=== PATIENT | male | born 1955 | race Caucasian/White ===

== ENCOUNTER 2019-05-16 16:45 | Emergency (ER) | payer BC, OTHER ==
[2019-05-16] MEDS ORDERED: NS 0.9% 1000 ML** 1,000 ML IV ONE (16:46)
[2019-05-16] MEDS ORDERED: Alteplase* 100 MG VIAL ONE (16:47)
--- NOTE | 2019-05-16 16:50 | ED ---
Neurological HPI - HPI Summary HPI Summary: Patient is a 63 y/o M presenting to the ED via EMS for a chief complaint of neurological deficit. Per EMS, patient had a headache at work around 15:00 on . After arriving home, patient was asymptomatic other than the headache until approximately 16:00 on 05/16/19, when his son noticed the patient was confused, had slurred speech, right-sided facial droop, and right-sided UE and LE weakness. EMS was called and patient continued to have these symptoms. On EMS arrival, patient could not state his name when asked. PMHx is significant for HTN for which he takes Losartan. Patient is not on blood thinners. Yvette rivera called 16:45, TPA at 17:08. - History of Current Complaint Stated Complaint: YVETTE RIVERA PER EMS Time Seen by Provider: 05/16/19 16:46 Hx Obtained From: Patient, EMS Onset/Duration: Sudden Onset, Still Present Timing: Sudden Onset Onset Severity: Moderate Current Severity: Moderate Neurological Deficit Location: RUE, RLE Pain Scale Used: 0-10 Numeric Character: Impaired Speech, Confusion Associated Signs and Symptoms: Positive: Headache, Confusion, Impaired Speech TPA Considered: Yes - Allergy/Home Medications Allergies/Adverse Reactions: Allergies Allergy/AdvReac Type Severity Reaction Status Date / Time No Known Allergies Allergy Verified 05/16/19 17:37 Home Medications: Home Medications Losartan TAB* [Cozaar TAB*] 100 mg PO DAILY 05/16/19 [History Confirmed 05/16/19 ] amLODIPine TAB* [Norvasc 5 mg TAB*] 5 mg PO DAILY 05/16/19 [History Confirmed ] buPROPion SR TAB* [Wellbutrin SR TAB*] 150 mg PO BID 05/16/19 [History Confirmed 05/16/19] PMH/Surg Hx/FS Hx/Imm Hx Previously Healthy: Yes Endocrine/Hematology History: Denies: Hx Anticoagulant Therapy Cardiovascular History: Reports: Hx Hypertension Sensory History: Denies: Hx Legally Blind, Hx Deafness Opthamlomology History: Denies: Hx Legally Blind EENT History: Denies: Hx Deafness - Surgical History Surgical History: None Surgery Procedure, Year, and Place: None Infectious Disease History: No Infectious Disease History: Denies: Traveled Outside the [place] in Last 30 Days - Family History Known Family History: Negative: Cardiac Disease - Social History Occupation: Employed Full-time Lives: With Family Alcohol Use: None Hx Substance Use: No Substance Use Type: Reports: None Hx Tobacco Use: No Smoking Status (MU): Never Smoked Tobacco Review of Systems Positive: Other - Positive right-sided facial droop Positive: Headache, Weakness - Right-sided, including right UE and LE, Slurred Speech Psychological: Other - Positive confusion All Other Systems Reviewed And Are Negative: Yes Physical Exam - Summary Physical Exam Summary: Constitutional: Well-developed, Well-nourished, Alert. (-) Distressed Skin: Warm, Dry HENT: Normocephalic; Atraumatic Eyes: Conjunctiva normal Neck: Musculoskeletal ROM normal neck. (-) JVD, (-) Stridor Cardio: Rhythm regular, rate normal, Heart sounds normal; Intact distal pulses; Radial pulses are 2+ and symmetric. (-) Murmur Pulmonary/Chest wall: Effort normal. (-) Respiratory distress, (-) Wheezes, (-) Rales Abd: Soft, (-) tenderness, (-) Distension, (-) Guarding, (-) Rebound Musculoskeletal: (-) Edema Lymph: (-) Cervical adenopathy Neuro: Alert, R facial droop R arm 0/5 strength, R Leg 0/5 strength, severe aphasia. NIHSS 20 Psych: deferred l Triage Information Reviewed: Yes Vital Signs Reviewed: Yes Procedures - Sedation Patient Received Moderate/Deep Sedation with Procedure: No Diagnostics - Laboratory Result Diagrams: 05/16/19 17:21 Lab Statement: Any lab studies that have been ordered have been reviewed, and results considered in the medical decision making process. - CT Head CTA Summary of CT Findings: Head CTA IMPRESSION: #. Calcific plaque appears to result in high-grade stenosis at the bilateral intracranial internal carotid arteries with magnitude of calcific plaque limiting assessment. #. 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 In retrospect there is LEFT middle cerebral artery hyperdense sign on noncontrast CT. Reviewed by Dr. Hayes. Brain CT CT Interpretation Completed By: Radiologist Summary of CT Findings: Brain CT IMPRESSION: #. Negative for intracranial hemorrhage or gross CT stigmata of ischemic stroke. #. Results discussed with Dr. Hayes 05/16/2019 4:[address] PM [address] Reviewed by Dr. Hayes. - EKG 17:08 Cardiac Rate: Tachycardia - 100 BPM EKG Rhythm: Sinus Tachycardia ST Segment: Normal Ectopy: None Summary of EKG Findings: An EKG at 17:08 reveals sinus tachycardia with 100 BPM , T wave flattening in lead III, nml axis, nml intervals. No STEMI. No acute changes. ED physician has reviewed and interpreted this EKG. NIH Scale - NIH Scale Level of Consciousness: Responds to Minor Stimulation Ask Patient the Month and His/Her Age: Neither Correct/Aphasic Ask Pt to Open/Close Eyes and Decorating Consultant/Release Non-Paretic Hand: One Correctly Best Gaze (Only Horizontal Eye Movement): Partial Gaze Palsy Visual Field Testing: Complete Hemianopia Facial Paresis-Pt to Smile & Close Eyes or Grimace Symmetry: Partial Paralysis Motor Function - Right Arm: No Effort Against Murphys Motor Function - Left Arm: No Drift-Holds 10 Seconds Motor Function - Right Leg: No Movement Motor Function - Left Leg: No Drift-Holds 10 Seconds Limb Ataxia-Must be out of Proportion to Weakness Present: Absent Sensory (Use Pinprick to Test Arms/Legs/Trunk/Face): Normal Best Language (Describe Picture, Name Items): Severe Aphasia Dysarthria (Read Several Words): Slurs Some Words Extinction and Inattention: Inattention Total Score: 20 NIH Stroke Scale Comment: NIH STROKE SCALE CALCULATED AT 17:00. Re-Evaluation - Re-Evaluation First Eval Re-Evaluation Time: 17:00 Change: Unchanged Comment: At 17:00, the risks and benefits of TPA administration were discussed with the patient and the patient's family. They understand the risks and benefits and agree to have TPA administered. Course/Dx - Course Course Of Treatment: 63 y/o history of hypertension presents with acute right- sided facial droop, aphasia, right-sided weakness. - NIHSS scale 20, non con head CT neg, CTA w M1 occlusion, patient is a TPA candidate given M1 occlusion on CT and LKN 16:00, risks and benefits were discussed with patient and TPA was administered. Case discussed with on-call neurology, Dr. Leone in conjunction with [facility]. - Patient to be transferred to [facility] for possible thrombectomy. - Diagnoses Provider Diagnoses: Occlusion of middle cerebral artery During the Visit The Following Alert/Code Occurred: Code Rivera - CODE RIVERA CALLED AT 16:32 IN THE ED ETA 15 MINUTES. [facility]. DR. HAYES TO ASSESS THE PATIENT AT 16:44. LAST KNOWN WELL TIME WAS 16:00 ON 05/16/19. DR. TALON LEONE AT BEDSIDE TO ASSESS THE PATIENT AT 16:44. PATIENT TAKEN TO CT SUITE AT 16:45. DR. LEONE RECOMMENDS BRAIN CT AND TPA BE ADMINISTERED AT 16:46. AT 16:48, DR. TALON LEONE RECOMMENDS TRANSFER TO ANOTHER FACILITY. RADIOLOGY GIVES A PRELIMINARY FINDING OF NEGATIVE FINDINGS FOR THE BRAIN CT AT 04:59. DR. LEONE IS PRESENT TO REASSESS THE PATIENT AND SPEAK TO THE FAMILY AT 17:00. RADIOLOGY GIVES A PRELIMINARY FINDING OF MCA OCCLUSION FOR THE HEAD CTA AT 17:05. TPA WAS CONSIDERED. PATIENT IS NOT ON BLOOD THINNERS. PATIENT WAS TPA MIXED AND GIVEN AT 17:08. - Physician Notifications Discussed Care Of Patient With: Talon Leone - DR. LEONE RECOMMENDS BRAIN CT AND TPA BE ADMINISTERED AT 16:46. AT 16:48, DR. TALON LEONE RECOMMENDS TRANSFER TO ANOTHER FACILITY. At 17:30, Dr. Deven Disla at [facility] reviewed the patients case and agrees to accept the patient as a transfer to their facility for a diagnosis of middle cerebral artery occlusion. Patient requires transfer to a high level of care as patient is not appropriate for [facility] and has a possible thrombectomy. Time Discussed With Above Provider: 16:46 Instructed by Provider To: Transfer Reason For Transfer: Specialty or service not available at [facility] Patient not appropriate for [facility] Specialist unable to manage this patient. - Critical Care Time Critical Care Time: 30-74 min - Upon my evaluation, this patient had a high probability of imminent or life-threatening deterioration due to acute stroke which required my direct attention, intervention, and personal management. I have personally provided 35 minutes of critical care time exclusive of time spent on separately billable procedures. Time includes review of laboratory data , radiology results, discussion with consultants, and monitoring for potential decompensation. Interventions were performed as documented above. Discharge ED - Sign-Out/Discharge Documenting (check all that apply): Patient Departure - Transfer - Discharge Plan Condition: Stable Disposition: TRANS [facility] Referrals: Giuseppe De La Cruz MD [Primary Care Provider] - - Billing Disposition and Condition Condition: STABLE Disposition: Trans Higher Lvl of Care Fac - Attestation Statements Document Initiated by Joyibe: Yes Documenting Scribe: Judy Bella Provider For Whom Simone is Documenting (Include Credential): Adrienne Hayes MD Scribe Attestation: Judy Aranda, scribed for Adrienne Hayes MD on 05/16/19 at 1737. Scribe Documentation Reviewed: Yes Provider Attestation: The documentation as recorded by the [facility] accurately reflects the service I personally performed and the decisions made by , Adrienne Hayes MD Status of Scribe Document: Viewed
--- OUTSIDE RECORDS SUMMARY | 2019-05-16 16:55 | XMS REPORT | Summary of Care ---
:1955 Author Organization [facility] Address [address] [place] Rivera [address] Care Team Providers Name Role Phone Giuseppe De La Cruz Primary Care Provider Reason for Visit Reason Comments Physical Patient here for routine physical and medication. Encounter Details Date Type Department Care Team Description 04/28/2019 Office Visit [facility] Giuseppe De La Cruz, Routine general Medicine MD medical examination at [facility] [address] [place] [address] [place] [address] (Primary Dx) [phone] Allergies No Known Allergiesdocumented as of this encounter (statuses as of 04/28/2019) Medications Medication Sig Dispensed Refills Start Date End Date Status Aspirin 81 MG Take 81 mg 0 Active Oral Tab by mouth. amLodipine Take 1 Tab 90 Tab 3 04/28/2019 04/27/2020 Active (NORVASC) 5 MG by mouth Oral Tab DAILY. Losartan Take 1 Tab 90 Tab 3 04/28/2019 Active Potassium 100 MG by mouth Oral Tab DAILY. buPROPion Take 1 Tab 60 Tab 5 04/28/2019 04/27/2020 Active (WELLBUTRIN SR) by mouth 150 MG Oral DIRECTED. TABLET SR 12 HR One in am 7 days prior to quit date then 1 twice daily 3 month Losartan Take 1 Tab 90 Tab 3 03/09/2019 04/28/2019 Discontinued Potassium 100 MG by mouth (Reorder) Oral Tab DAILY. amLodipine Take 1 Tab 30 Tab 0 04/07/2019 04/28/2019 Discontinued (NORVASC) 5 MG by mouth (Reorder) Oral Tab DAILY. documented as of this encounter (statuses as of 04/28/2019) Active Problems Problem Noted Date Essential hypertension 10/29/2016 Tobacco use disorder Dyslipidemia documented as of this encounter (statuses as of 04/28/2019) Resolved Problems Problem Noted Date Resolved Date Hypertension 10/29/2016 documented as of this encounter (statuses as of 04/28/2019) Immunizations Name Administration Dates Next Due Influenza (IM) Preservative Free 01/16/2011 PNEUMOCOCCAL POLYSACCHARIDE VACCINE 03/04/2018 TDAP Vaccine 02/04/2010 documented as of this encounter Social History Tobacco Use Types Packs/Day Years Used Date Current Every Day Smoker Cigarettes 0.75 25 Smokeless Tobacco: Never Used Comments: quit for over 1 year in the distant past Alcohol Use Drinks/Week oz/Week Comments Yes 4 Cans of beer 4.0 Sex Assigned at Date Recorded Not on file Job Start Date Occupation Industry Not on file Not on file Not on file Travel History Travel Start Travel End No recent travel history available. documented as of this encounter Last Filed Vital Signs Vital Sign Reading Time Taken Comments Blood Pressure 136/72 04/28/2019 10:10 AM EST Pulse 84 04/28/2019 9:41 AM EST Temperature - - Respiratory Rate - - Oxygen Saturation 98% 04/28/2019 9:41 AM EST Inhaled Oxygen Concentration - - Weight 87.5 kg (193 lb) 04/28/2019 9:41 AM EST Height 170.2 cm (5' 7") 04/28/2019 9:41 AM EST Body Mass Index 30.23 04/28/2019 9:41 AM EST documented in this encounter Patient Instructions Patient InstructionsGiuseppe De La Cruz MD - 04/28/2019 9:40 AM ESTBlood test today Refill on medication Bupropion (wellbutrin) is a pill that can help you quit smoking. It works by blocking the pleasurable sensation of nicotine. It can cause dry mouth, headache and insomnia in 5-10% who use it. Please read the material I have given you and consider using bupriorpion around the time you quit smoking This was sent in take for one week prior to smoke quit date and use for 3 months documented in this encounter Progress Notes Giuseppe De La Cruz MD - 04/28/2019 9:40 AM EST SUBJECTIVE: Jay Croft is a 63-y.o. male for presenting for his annual checkup. Patient Active Problem List Diagnosis Tobacco use disorder Dyslipidemia Essential hypertension Current Outpatient Medications Medication Sig amLodipine (NORVASC) 5 MG Oral Tab Take 1 Tab by mouth DAILY. Aspirin 81 MG Oral Tab Take 81 mg by mouth. buPROPion (WELLBUTRIN SR) 150 MG Oral TABLET SR 12 HR Take 1 Tab by mouth DIRECTED. One austen 7 days prior to quit date then 1 twice daily 3 month Losartan Potassium 100 MG Oral Tab Take 1 Tab by mouth DAILY. No current facility-administered medications for this visit. Allergies: Patient has no known allergies. ROS: Feeling well. No dyspnea or chest pain on exertion. No abdominal pain, change in bowel habits,black or bloody stools. No urinary tract or prostatic symptoms. No neurological complaints. He still smokes he has cut down he wants to quit no quit date set yet OBJECTIVE: The patient appears well, alert, oriented x 3, in no distress. BP 136/72 | Pulse 84 | Ht 5' 7" (1.702 m) | Wt 193 lb (87.5 kg) | SpO2 98% | BMI 30.23 kg/m ENT normal. Neck supple. No adenopathy or thyromegaly. PIA. Lungs are clear, good air entry, no wheezes, rhonchi or rales. S1 and S2 normal, no murmurs, regular rate and rhythm. Abdomen is soft without tenderness, guarding, mass or organomegaly. exam: no penile lesions or discharge, no testicular masses or tenderness, no hernias. Rectal and prostate exam: deferred, not clinically indicated. Extremities show no edema, normal peripheral pulses. Neurological is normal without focal findings. I note only benign skin findings. No unusual rashes or suspicious skin lesions noted. Nails appear normal. ICD-9-CM ICD-10-CM 1. Routine general medical examination at a health care facility V70.0 Z00.00 COMPREHENSIVE METABOLIC PANEL LIPID PROFILE PSA, TOTAL (FOLLOW-UP DIAGNOSTIC) 2. Tobacco use I spent 12 minutes in direct face to face counseling with the patient regarding smoking cessation. A plan was developed with the patient to start buproprion and cut down cigarette use over the next 2-4 weeks. A usp goal to set a quit date was discussed with patient. Pharmacologic and behavioral strategies for tobacco cessation were dicussed at length. (87302). Patient Instructions Blood test today Refill on medication Bupropion (wellbutrin) is a pill that can help you quit smoking. It works by blocking the pleasurable sensation of nicotine. It can cause dry mouth, headache and insomnia in 5-10% who use it. Please read the material I have given you and consider using bupriorpion around the time you quit smoking This was sent in take for one week prior to smoke quit date and use for 3 months documented in this encounter Plan of Treatment Name Type Priority Associated Diagnoses Date/Time COMPREHENSIVE METABOLIC Lab Routine Routine general medical 04/28/2019 10: 15 AM PANEL examination at a [facility] facility LIPID PROFILE Lab Routine Routine general medical 04/28/2019 10:15 AM examination at a [facility] PSA, TOTAL (FOLLOW-UP Lab Routine Routine general medical 04/28/2019 10:15 AM DIAGNOSTIC) examination at a [facility] Health Maintenance Due Date Last Done Comments ZOSTER IMMUNIZATION SERIES 12/15/2007 (1 of 2) DIABETES SCREENING 04/26/2019 04/26/2018, 03/04/2018, 10/29/2016 LIPID DISORDER SCREENING 04/26/2019 04/26/2018, 03/04/2018, 10/29/2016, Additional history exists DTaP/Tdap/Td Vaccines (2 - 02/05/2020 02/04/2010 Tdap) DEPRESSION SCREENING 04/28/2020 04/28/2019 Colonoscopy 01/06/2022 01/06/2017 PNEUMOCOCCAL 0-64 YRS Completed 03/04/2018 HEPATITIS A IMMUNIZATION Aged Out No longer eligible SERIES based on patient's age to complete this topic HPV IMMUNIZATION SERIES Aged Out No longer eligible based on patient's age to complete this topic MENINGOCOCCAL VACCINE IMM Aged Out No longer eligible based on patient's age to complete this topic documented as of this encounter Goals Goal Patient Goal Associated Recent Patient-Stated? Author Type Problems Progress Blood Pressure Blood Pressure 136/72 No Dunn, < 140/90 (04/28/2019 Giuseppe Simpson, 10:10 AM EST) Note: This is an individualized treatment (blood pressure) goal for Jay Croft: Displayed above (on the left) is your goal for blood pressure control. Your most recent blood pressure is also shown above, on the right. You should try to achieve blood pressures that are lower than your goal listed above (on the left). Weight loss vs. 18 mo Lifestyle 0 (04/28/2019 9:41 AM No Giuseppe De La Cruz MD max (lbs) >= 10 EST) Note: This is an individualized lifestyle goal for Jay Croft: Your body mass index (BMI) is more than 30. You should lose weight. A reasonable starting goal is to lose 10 pounds. Displayed above is how many pounds you have lost thus far towards your 10 pound weight loss goal. Take all prescribed medications as Self-management No Giuseppe De La Cruz MD directed Note: This is an individualized self-management goal for Jay Croft: Please take all prescribed medications as directed. 1. Do not skip doses. If you cannot afford your medications, talk with your doctor. 2. Use a pill reminder system such as a pill box if needed. Your pharmacist can help you with this. 3. Contact your Pharmacy 5 days before your medication runs out. If you cannot take your medications for any reasons, talk with your doctor. 4. Please bring all of your medication bottles and inhalers (or a list of all your medications/inhalers) with you to every visit. Potential barriers to meeting all of your care plan goals will continue to be addressed on an ongoing basis. documented as of this encounter Results Not on filedocumented in this encounter Visit Diagnoses Diagnosis Routine general medical examination at a health care facility documented in this encounter Insurance Payer Benefit Plan / Subscriber ID Effective Dates Phone Address Type Group MEHUL HERRERA xxxxxxxxxxxx 2014-Present Mehul BRANHAM PPO Guarantor Name Account Type Relation to Date of Phone Billing Patient Address Jay Croft Personal/Family 1955 [address] (Home) [place], [place] [phone] [id number] (Work) documented as of this encounter
[2019-05-16] MEDS ORDERED: Iodixanol 320 (CONTRAST) 100 ML SDV IV ONE (16:56)
[2019-05-16] MEDS ORDERED: ALTEPLASE IV ONE (17:05)
[2019-05-16] MEDS ORDERED: Alteplase* 100 MG VIAL IV ONE (17:07)
[2019-05-16 17:24] VITALS: BP 147/91
[2019-05-16 17:27] LABS: ABS Basophils 0.1 10^3/ul (0-0.2); ABS Eosinophils 0.2 10^3/ul (0-0.6); ABS Lymphocytes 1.1 10^3/ul (1.0-4.8); ABS Monocytes 0.7 10^3/ul (0-0.8); ABS Neutrophils 3.9 10^3/ul (1.5-7.7); Eosinophil % 3.1 %; Hematocrit 44 % (42-52); Hemoglobin 15.4 g/dL (14.0-18.0); Lymphocyte % 17.9 %; Mean Corpuscular HGB Conc 35 g/dL (31-36); Mean Corpuscular Hemoglobin 32 pg (27-31); Mean Corpuscular Volume 91 fL (80-94); Mean Platelet Volume 6.2 fL (7.4-10.4); Platelet Count 297 10^3/uL (150-450); Red Blood Count 4.87 10^6 /uL (4.18-5.48); Red Cell Distribution Width 15 % (10-15); White Blood Count 5.9 10^3/uL (3.5-10.8)
[2019-05-16 17:35] LABS: Activated Partial Thrombo Time 33.3 seconds (26.0-38.0); INR 0.98 (0.82-1.09)
[2019-05-16 17:48] LABS: Albumin 4.2 g/dL (3.2-5.2); Albumin/Globulin Ratio 1.4 (1-3); Calcium 9.2 mg/dL (8.6-10.3); EGFR African American 84.1 (>60); EGFR Non-African American 69.5 (>60); Globulin 3.1 g/dL (2-4); HDL Cholesterol 26.3 mg/dL; Total Bilirubin 0.3 mg/dL (0.2-1.0); Total Protein 7.3 g/dL (6.4-8.9)
--- NOTE | 2019-05-16 18:08 | CONS ---
CONTINUATION ADDENDUM NOW INCLUDED ON THIS REPORT NEUROLOGY CONSULTATION: DATE OF CONSULT: 05/16/19 REFERRING PROVIDER/EMERGENCY PHYSICIAN: Dr. Hayes. LOCATION: He is in the emergency room. CHIEF COMPLAINT: Right-sided weakness. HISTORY OF PRESENT ILLNESS: Jay Corft is a 63-year-old right-handed man who came home from work today with a cough. He had a cough for couple of days according to his . CONTINUATION ADDENDUM: He was sitting with his family at 1600 and suddenly stopped speaking. He developed right facial weakness. An ambulance was called immediately. I confirmed with his girlfriend that he was well right up until 1600 hours. In the ambulance, he was not able to raise his right arm or leg, and had a right facial weakness, and was not able to produce words. In the emergency room when first evaluated in the tam, he had an obvious right hemiparesis and was very aphasic. He had a left gaze preference. He was stopped at CT scanner and he had a CT scan of the brain, which I reviewed the images personally, which looks normal. There may be a dense left middle cerebral artery sign. He then had a CT angiogram of the brain, which reveals a cutoff of the left M1 middle cerebral artery. He has a history of hypertension and is on amlodipine and I think I believe lisinopril. He smokes. He drinks 2 to 3 beers per evening. There is no history of stroke. He is not on any blood thinners. There is no history of bleeding disorders. There is no history of gastrointestinal bleeding, recent trauma, or recent surgeries. REVIEW OF SYSTEMS: The patient is unproductive. PHYSICAL EXAMINATION: His blood pressure is running about 140/90, heart rate is running 80 to 90 in sinus on the monitor, respiratory rate is 14. Oxygen saturation is excess of 95% on room air. Neurological exam pupils are equal at about 3 mm and react to light. He has a left gaze preference but later in the evaluation, he is able to fully bring his eyes to the right. He had a right homonymous hemianopia. He had a central pattern right facial weakness. He responded to nasal tickle on the right side briskly and more so than on the left side. Speech was not dysarthric and he was only able to produce single words. On motor exam, he could move the right arm a little bit, but could not raise it off the bed. He was not able to move the right leg at all. He had normal volitional strength in the left arm and left leg. When asked to move his right side he would often move his left indicating some neglect. There is no dysmetria in the left upper extremity. He was a little bit sleepy initially. He was able to follow most but not all commands. He could produce single word answers some of the time but not routinely. DIAGNOSTIC STUDIES/LAB DATA: There were no laboratory studies to review at this point in time other than the imaging. 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 On the CTA, the radiologist does state that in retrospect there is a left middle cerebral artery hyperdense sign. IMPRESSION: Left middle cerebral artery occlusion. The risks and benefits of intravenous tPA were explained to Jay and to his girlfriend, who is listed as his next of kin. I explained that there is an improved outcome for patients who receive IV tPA in terms of stroke recovery, but there is a risk of bleeding which is about 60% and can be fatal. Jay agreed to receive tPA. TPA has since been bolused and is infusing. I have discussed this case with Dr. Disla of the stroke service at the [facility] and he has kindly agreed to accept Jay in transfer. Currently, the [employer] helicopter is on its way. I will continue to keep an eye on him here in the emergency room until he is transferred out. [id number]/CPS #: [id number] A- [id number]/[id number] #: [id number] [facility]OSPITALMichelle
[2019-05-16 18:20] LABS: Potassium 4.2 mmol/L (3.5-5.0)
--- NOTE | 2019-05-16 18:50 | CONS ---
NEUROLOGY CONSULTATION: ADDENDUM: DATE OF CONSULT: 05/16/19 EMERGENCY PHYSICIAN: Dr. Hayes He was sitting with his family at 1600 and suddenly stopped speaking. He developed right facial weakness. An ambulance was called immediately. I confirmed with his girlfriend that he was well right up until 1600 hours. In the ambulance, he was not able to raise his right arm or leg and had a right facial weakness and was not able to produce words. In the emergency room when first evaluated in the tam, he had an obvious right hemiparesis and was very aphasic. He had a left gaze preference. He was stopped at CT scanner and he had a CT scan of the brain, which I reviewed the images personally, which looks normal. There may be a dense left middle cerebral artery sign. He then had a CT angiogram of the brain, which reveals a cutoff of the left M1 middle cerebral artery. He has a history of hypertension and is on amlodipine and I think I believe lisinopril. He smokes. He drinks 2 to 3 beers per evening. There is no history of stroke. He is not on any blood thinners. There is no history of bleeding disorders. There is no history of gastrointestinal bleeding, recent trauma, or recent surgeries. REVIEW OF SYSTEMS: The patient is unproductive. PHYSICAL EXAMINATION: His blood pressure is running about 140/90, heart rate is running 80 to 90 in sinus on the monitor, respiratory rate is 14. Oxygen saturation is excess of 95% on room air. Neurological exam pupils are equal at about 3 mm and react to light. He has a left gaze preference but later in the evaluation, he is able to fully bring his eyes to the right. He had a right homonymous hemianopia. He had a central pattern right facial weakness. He responded to nasal tickle on the right side briskly and more so than on the left side. Speech was not dysarthric and he was only able to produce single words. On motor exam, he could move the right arm a little bit, but could not raise it off the bed. He was not able to move the right leg at all. He had normal volitional strength in the left arm and left leg. When asked to move his right side he would often move his left indicating some neglect. There is no dysmetria in the left upper extremity. He was a little bit sleepy initially. He was able to follow most but not all commands. He could produce single word answers some of the time but not routinely. DIAGNOSTIC STUDIES/LAB DATA: There were no laboratory studies to review at this point in time other than the imaging. 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 On the CTA, the radiologist does state that in retrospect there is a left middle cerebral artery hyperdense sign. IMPRESSION: Left middle cerebral artery occlusion. The risks and benefits of intravenous tPA were explained to Jay and to his girlfriend, who is listed as his next of kin. I explained that there is an improved outcome for patients who receive IV tPA in terms of stroke recovery, but there is a risk of bleeding which is about 60% and can be fatal. Jay agreed to receive tPA. TPA has since been bolused and is infusing. I have discussed this case with Dr. Disla of the stroke service gat the [facility] and he has kindly agreed to accept Jay in transfer. Currently, the [employer] [facility] helicopter is on its way. I will continue to keep an eye on him here in the emergency room until he is transferred out. [id number]/[facility] #: [id number] DANA
== END 2019-05-16 18:47 | disposition short-term general hospital (02) ==
LOC: ED 16:45
DX: I66.3 Occlusion and stenosis of cerebellar arteries (principal); I10 Essential (primary) hypertension; Z79.899 Other long term (current) drug therapy
CPT/HCPCS: 36415; 70450; 70496; 70498; 71045; 80053; 80061; 83605; 84484; 85025; 85610; 85730; 93005; 96365; 99285; J2997; Q9967

== ENCOUNTER 2021-05-03 07:40 | Inpatient (IN) ==
[2021-05-03] MEDS ORDERED: Lactated Ringers 1000 ml BAG 1,000 ML IV ONE (07:49)
[2021-05-03 08:18] LABS: ABS Lymphocytes 1.8 10^3/ul (1.0-4.8); ABS Monocytes 0.8 10^3/ul (0-0.8); ABS Neutrophils 8.3 10^3/ul (1.5-7.7); Eosinophil % 0.3 %; Hematocrit 49 % (42-52); Hemoglobin 15.6 g/dL (14.0-18.0); Lymphocyte % 16.4 %; Mean Corpuscular HGB Conc 32 g/dL (31-36); Mean Corpuscular Hemoglobin 30 pg (27-31); Mean Corpuscular Volume 93 fL (80-94); Platelet Count 379 10^3/uL (150-450); Red Blood Count 5.22 10^6 /uL (4.18-5.48); Red Cell Distribution Width 16 % (10-15); Venous Bicarbonate HCO3 21.8 mmol/L (24-28); White Blood Count 11.1 10^3/uL (3.5-10.8)
[2021-05-03 08:35] LABS: Albumin 4.5 g/dL (3.2-5.2); Albumin/Globulin Ratio 1.2 (1-3); C Reactive Protein 11.27 mg/L (<8.01); Calcium 10.5 mg/dL (8.6-10.3); Globulin 3.8 g/dL (2-4); Total Bilirubin 0.4 mg/dL (0.2-1.0); Total Protein 8.3 g/dL (6.4-8.9); eGFR CKD-EPI 36.2 (>60)
[2021-05-03 08:38] LABS: Potassium 5.1 mmol/L (3.5-5.0)
[2021-05-03] MEDS ORDERED: NORMOSOL-R pH 7.4 1000 mL BAG 1,000 ML IV ONE (09:10)
[2021-05-03] MEDS ORDERED: Dextrose 50% Syringe 50 ml 25 GM/50 ML SYRINGE IV PUSH PRN ×2 (09:10→22:46)
[2021-05-03] MEDS: Insulin Infusion 100unit/100mL 100 UNIT/100 ML BAG IV SCH ×2 (10:04→19:53)
[2021-05-03] MEDS: NORMOSOL-R pH 7.4 1000 mL BAG 1,000 ML IV SCH ×2 (11:11→19:29)
[2021-05-03 13:05] LABS: Calcium 9.4 mg/dL (8.6-10.3); Potassium 3.8 mmol/L (3.5-5.0)
[2021-05-03 14:34] LABS: Glucose Confirmatory 442 mg/dL (70-100)
[2021-05-03 14:42] LABS: Urine Appearance Clear; Urine Bilirubin Negative (Negative); Urine Blood Negative (Negative); Urine Color Straw; Urine Glucose 3+(>=500 mg/dL) (Negative); Urine Ketones 1+ (Negative); Urine Nitrite Negative (Negative); Urine Protein Negative (Negative); Urine Specific Gravity 1.031 (1.002-1.030); Urine Urobilinogen Negative (Negative)
[2021-05-03] MEDS: Polyethylene Glycol 3350 17 GM PACKET PO SCH (14:52)
[2021-05-03 17:31] LABS: Calcium 9.1 mg/dL (8.6-10.3); Potassium 3.7 mmol/L (3.5-5.0); eGFR CKD-EPI 53.7 (>60)
[2021-05-03] MEDS ORDERED: KCL 20 MEQ/100 ML IVPREMIX 20 MEQ/100 ML BAG IV ONE (17:45)
[2021-05-03 18:44] LABS: Calcium 9.2 mg/dL (8.6-10.3); Potassium 3.6 mmol/L (3.5-5.0); eGFR CKD-EPI 55.5 (>60)
[2021-05-03 22:37] LABS: Calcium 8.9 mg/dL (8.6-10.3); Potassium 3.5 mmol/L (3.5-5.0); eGFR CKD-EPI 61.7 (>60)
[2021-05-03] MEDS ORDERED: D5W 1/2 NS 1000 ml BAG 1,000 ML IV SCH (23:00)
[2021-05-03] MEDS ORDERED: Insulin GLARGINE 100 un/ml 10 ml VIAL SUBCUT SCH (23:00)
[2021-05-04] MEDS ORDERED: D5W 1/2 NS 1000 ml BAG 1,000 ML IV SCH (01:12)
[2021-05-04] MEDS ORDERED: Lactated Ringers 1000 ml BAG 1,000 ML IV SCH (03:00)
[2021-05-04 04:42] LABS: ABS Eosinophils 0.2 10^3/ul (0-0.6); ABS Lymphocytes 2.7 10^3/ul (1.0-4.8); ABS Monocytes 0.7 10^3/ul (0-0.8); ABS Neutrophils 5.9 10^3/ul (1.5-7.7); Eosinophil % 1.6 %; Hematocrit 33 % (42-52); Hemoglobin 11.2 g/dL (14.0-18.0); Lymphocyte % 28.5 %; Mean Corpuscular HGB Conc 34 g/dL (31-36); Mean Corpuscular Hemoglobin 30 pg (27-31); Mean Corpuscular Volume 90 fL (80-94); Mean Platelet Volume 8.4 fL (7.4-10.4); Platelet Count 239 10^3/uL (150-450); Red Blood Count 3.69 10^6 /uL (4.18-5.48); Red Cell Distribution Width 15 % (10-15); White Blood Count 9.6 10^3/uL (3.5-10.8)
[2021-05-04 04:52] LABS: INR 1.57 (0.86-1.15)
[2021-05-04 04:57] LABS: Albumin/Globulin Ratio 1.3 (1-3); Calcium 8.5 mg/dL (8.6-10.3); Globulin 2.4 g/dL (2-4); Phosphorus 2.7 mg/dL (2.5-5.0); Potassium 3.5 mmol/L (3.5-5.0); Total Bilirubin 0.4 mg/dL (0.2-1.0); Total Protein 5.4 g/dL (6.4-8.9); eGFR CKD-EPI 70.8 (>60)
[2021-05-04] MEDS ORDERED: Potassium Chlor 20 meq TAB.ER PO ONE (05:16)
[2021-05-04] MEDS: Polyethylene Glycol 3350 17 GM PACKET PO SCH (07:38)
[2021-05-04] MEDS ORDERED: Insulin GLARGINE 100 un/ml 10 ml VIAL ONE (12:17)
[2021-05-04] MEDS: Insulin GLARGINE 100 un/ml 10 ml VIAL SUBCUT SCH ×2 (12:27→21:33)
[2021-05-04] MEDS ORDERED: Insulin GLARGINE 100 un/ml 10 ml VIAL SUBCUT SCH (13:00)
[2021-05-04] MEDS: Magnesium Hydroxide LIQ 30 ML UDC PO PRN ×2 (15:03→21:28)
[2021-05-05 06:25] LABS: Calcium 8.6 mg/dL (8.6-10.3); Phosphorus 3.5 mg/dL (2.5-5.0); Potassium 3.6 mmol/L (3.5-5.0); eGFR CKD-EPI 83.6 (>60)
[2021-05-05] MEDS ORDERED: Glycerin ADULT 2.4 gm SUPP PR ONE (09:00)
[2021-05-05] MEDS: Polyethylene Glycol 3350 17 GM PACKET PO SCH (09:26)
[2021-05-05] MEDS: Insulin GLARGINE 100 un/ml 10 ml VIAL SUBCUT SCH ×2 (09:27→21:03)
[2021-05-06 07:18] LABS: ABS Eosinophils 0.1 10^3/ul (0-0.6); ABS Lymphocytes 1.3 10^3/ul (1.0-4.8); ABS Monocytes 0.4 10^3/ul (0-0.8); ABS Neutrophils 4.3 10^3/ul (1.5-7.7); Eosinophil % 2.3 %; Hematocrit 34 % (42-52); Hemoglobin 11.2 g/dL (14.0-18.0); Lymphocyte % 21.1 %; Mean Corpuscular HGB Conc 33 g/dL (31-36); Mean Corpuscular Hemoglobin 30 pg (27-31); Mean Corpuscular Volume 90 fL (80-94); Mean Platelet Volume 8.5 fL (7.4-10.4); Platelet Count 214 10^3/uL (150-450); Red Blood Count 3.75 10^6 /uL (4.18-5.48); Red Cell Distribution Width 15 % (10-15); White Blood Count 6.2 10^3/uL (3.5-10.8)
[2021-05-06 07:28] LABS: Calcium 8.6 mg/dL (8.6-10.3); Potassium 3.7 mmol/L (3.5-5.0); eGFR CKD-EPI 88.8 (>60)
[2021-05-06] MEDS: Insulin GLARGINE 100 un/ml 10 ml VIAL SUBCUT SCH ×2 (09:14→20:20)
[2021-05-06] MEDS: Polyethylene Glycol 3350 17 GM PACKET PO SCH (09:17)
[2021-05-06] MEDS ORDERED: Perflutren Lipid Microsphere 3 ML VIAL ONE (09:43)
[2021-05-06] MEDS ORDERED: Insulin GLARGINE 100 un/ml 10 ml VIAL SUBCUT SCH (21:00)
[2021-05-07] MEDS: Insulin GLARGINE 100 un/ml 10 ml VIAL SUBCUT SCH (09:42)
[2021-05-07] MEDS: Polyethylene Glycol 3350 17 GM PACKET PO SCH (12:14)
[2021-05-07] MEDS ORDERED: Insulin GLARGINE 100 un/ml 10 ml VIAL SUBCUT SCH (21:00)
[2021-05-08 07:07] LABS: Blood Urea Nitrogen 10 mg/dL (6-24); CO2 Carbon Dioxide 21 mmol/L (22-32); Calcium 8.6 mg/dL (8.6-10.3); Chloride 106 mmol/L (101-111); Glucose 213 mg/dL (70-100); Magnesium 1.8 mg/dL (1.9-2.7); Sodium 134 mmol/L (135-145); eGFR CKD-EPI 86.6 (>60)
[2021-05-08] MEDS ORDERED: Magnesium Sulfate IV 1GM/100ML 1 GM/100 ML BAG IV ONE (07:14)
[2021-05-08 07:55] LABS: Anion Gap 7 mmol/L (2-11)
[2021-05-08] MEDS: Insulin GLARGINE 100 un/ml 10 ml VIAL SUBCUT SCH (10:11)
[2021-05-08] MEDS: Polyethylene Glycol 3350 17 GM PACKET PO SCH ×2 (10:13→10:15)
[2021-05-09 05:16] LABS: Hematocrit 33 % (42-52); Mean Corpuscular HGB Conc 34 g/dL (31-36); Mean Corpuscular Hemoglobin 30 pg (27-31); Mean Corpuscular Volume 89 fL (80-94); Mean Platelet Volume 7.9 fL (7.4-10.4); Platelet Count 282 10^3/uL (150-450); Red Cell Distribution Width 15 % (10-15); White Blood Count 6.8 10^3/uL (3.5-10.8)
[2021-05-09 05:34] LABS: Calcium 8.6 mg/dL (8.6-10.3); Magnesium 1.9 mg/dL (1.9-2.7); Potassium 3.5 mmol/L (3.5-5.0); eGFR CKD-EPI 85.6 (>60)
[2021-05-09] MEDS: Polyethylene Glycol 3350 17 GM PACKET PO SCH (08:23)
[2021-05-09] MEDS: Insulin GLARGINE 100 un/ml 10 ml VIAL SUBCUT SCH (08:23)
[2021-05-09 08:30] VITALS: BP 116/74
[2021-05-09 13:42] LABS: Zinc Transporter 8 (ZnT8) Ab <15.0 U/mL (<15.0)
== END 2021-05-09 12:45 | disposition home or self-care (01) | DRG 420 ==
LOC: ED 07:40 → SUATTDRO 12:20 → EDHOLD 12:20 → ICU 13:07 → MEDTELE 05-04 14:44
PROVIDERS: ADMIT Internal Medicine; ATTEND Hospitalist